=== PATIENT | female | born 1960 | race Caucasian/White ===

== ENCOUNTER 2024-03-05 17:03 | Inpatient (IN) | payer OTHER ==
[2024-03-05 17:10] VITALS: BMI 18.8
[2024-03-05] MEDS ORDERED: ACETAMINOPHEN INJECTION 100 ML ONE ×2 (18:01→23:38)
[2024-03-05] MEDS ORDERED: FAMOTIDINE 10 MG/ML VIAL IVPB ONE (18:02)
[2024-03-05] MEDS ORDERED: ONDANSETRON 4 MG/2 ML VIAL ONE (18:02)
[2024-03-05] MEDS: ACETAMINOPHEN 1000 MG/100 ML BAG IVPB ONE (18:19)
[2024-03-05] MEDS: SODIUM CHLORIDE 1,000 ML IV STA ×2 (18:19→22:06)
[2024-03-05] MEDS: ONDANSETRON 4 MG/2 ML VIAL IVPUSH ONE (18:20)
[2024-03-05] MEDS: FAMOTIDINE 20 MG/50 ML IVPB 20 MG/50 ML MG IVPB ONE (18:20)
[2024-03-05] MEDS ORDERED: HYDROmorphone HCl 2 MG/ML VIAL ONE ×2 (18:21→20:53)
[2024-03-05] MEDS: HYDROmorphone HCl 2 MG/ML VIAL IVPUSH ONE ×2 (18:28→21:04)
[2024-03-05 18:31] LABS: BASO % 0.5 % (0-2.0); HEMATOCRIT 41.9 % (32.4-45.2); HEMOGLOBIN 13.9 GM/dL (10.7-15.3); LYMPH % 16.7 % (8-40); MCH 29.9 pg (25.7-33.7); MCHC 33.1 g/dl (32.0-36.0); MEAN CELL VOLUME 90.2 fl (80-96); MEAN PLT VOLUME 9.3 fl (7.5-11.1); MONO % 7.6 % (3.8-10.2); NEUT % 71.2 % (42.8-82.8); PLATELET COUNT 286 10^3/uL (134-434); RBC 4.65 M/mm3 (3.60-5.2); RDW 16.1 % (11.6-15.6)
[2024-03-05 18:43] LABS: POTASSIUM 4.7 mmol/L (3.5-5.1)
[2024-03-05 18:46] LABS: ALBUMIN 4.2 g/dl (3.4-5.0)
[2024-03-05 18:48] LABS: CREATININE 0.8 mg/dL (0.55-1.3)
[2024-03-05 18:50] LABS: BILIRUBIN,TOTAL 0.4 mg/dL (0.2-1); TOT PROT 7.5 g/dl (6.4-8.2)
[2024-03-05] MEDS: LACTATED RINGERS SOLUTION 1000 ML INFUS.BAG IV ONE (21:48)
[2024-03-05] MEDS ORDERED: KETOROLAC TROMETHAMINE 15 MG/ML VIAL ONE (22:12)
[2024-03-05] MEDS: KETOROLAC TROMETHAMINE 15 MG/ML VIAL IVPUSH PRN (22:16)
[2024-03-06] MEDS: ACETAMINOPHEN 1000 MG/100 ML BAG IVPB PRN
[2024-03-06] MEDS ORDERED: MORPHINE SULFATE 2 MG/ML SYRINGE ONE (00:35)
[2024-03-06] MEDS: morphine CARPU-JECT 2 MG/1 ML DISP.SYRIN IM ONE (00:42)
[2024-03-06] MEDS: MORPHINE SULFATE 2 MG/ML SYRINGE IVPUSH ONE (00:42)
[2024-03-06] MEDS ORDERED: HYDROmorphone HCl 2 MG/ML VIAL ONE (01:06)
[2024-03-06] MEDS: HYDROmorphone HCl 2 MG/ML VIAL IVPB PRN ×3 (01:14→22:27)
[2024-03-06] MEDS ORDERED: methylPREDNISolone NA SUCC 125 MG/2 ML VIAL IVPUSH ONE (01:44)
[2024-03-06] MEDS: SODIUM CHLORIDE 1,000 ML IV SCH (03:03)
[2024-03-06] MEDS: methylPREDNISolone NA SUCC 125 MG/2 ML VIAL IVPB ONE (03:20)
[2024-03-06] MEDS: GABAPENTIN 300 MG CAPSULE PO SCH (06:12)
[2024-03-06] MEDS: MUPIROCIN CA 2% TOPICAL CREAM 15 GM TUBE TP SCH (07:15)
[2024-03-06 08:56] LABS: POTASSIUM 4.3 mmol/L (3.5-5.1)
[2024-03-06 09:00] LABS: BASO % 0.5 % (0-2.0); EOS % 0.5 % (0-4.5); HEMATOCRIT 39.8 % (32.4-45.2); HEMOGLOBIN 13.2 GM/dL (10.7-15.3); LYMPH % 9.1 % (8-40); MCH 30.2 pg (25.7-33.7); MCHC 33.2 g/dl (32.0-36.0); MEAN PLT VOLUME 9.5 fl (7.5-11.1); MONO % 1.3 % (3.8-10.2); NEUT % 88.6 % (42.8-82.8); PLATELET COUNT 272 10^3/uL (134-434); RBC 4.37 M/mm3 (3.60-5.2); RDW 16.2 % (11.6-15.6); WHITE BLOOD COUNT 9.2 K/mm3 (4.0-10.0)
[2024-03-06] MEDS: ENOXAPARIN NA (PORCINE) 40 MG/0.4 ML DISP.SYRIN SQ SCH (09:42)
[2024-03-06] MEDS ORDERED: methylPREDNISolone NA SUCC 125 MG/2 ML VIAL IVPB ONE (10:00)
[2024-03-06] MEDS ORDERED: EMOLLIENT BASE TP SCH (10:00)
[2024-03-06] MEDS ORDERED: [UNRECOGNIZED DRUG - OTHER] TP SCH (10:00)
[2024-03-06] MEDS ORDERED: TRETINOIN TP SCH (10:00)
[2024-03-06 10:05] LABS: CALCIUM 9.4 mg/dL (8.5-10.1)
[2024-03-06 10:06] LABS: ALBUMIN 4.1 g/dl (3.4-5.0); BLOOD UREA NITROGEN 13.4 mg/dL (7-18); MAGNESIUM 2.4 mg/dL (1.8-2.4)
[2024-03-06 10:09] LABS: CREATININE 0.7 mg/dL (0.55-1.3); PHOSPHOROUS 3.3 mg/dL (2.5-4.9)
[2024-03-06 10:10] LABS: TOT PROT 7.1 g/dl (6.4-8.2)
[2024-03-06 10:21] LABS: BILIRUBIN,TOTAL 0.5 mg/dL (0.2-1)
[2024-03-06] MEDS: HYDROmorphone HCl 2 MG/ML VIAL IVPB ONE (17:54)
[2024-03-06] MEDS: KETOROLAC TROMETHAMINE 15 MG/ML VIAL IVPUSH ONE (17:55)
[2024-03-06] MEDS: oxyCODONE HCL 5 MG TABLET PO PRN (20:28)
[2024-03-06] MEDS: PATIENT'S OWN MEDICATION (NON-FORMULARY) (Tizanidine Hcl [Tizanidine Hcl] 4 MG Tablet) PO SCH (21:10)
[2024-03-06] MEDS: PANTOPRAZOLE SODIUM 40 MG VIAL IVPUSH SCH (21:10)
[2024-03-06] MEDS: MONTELUKAST NA 10 MG TABLET PO SCH (21:10)
[2024-03-06] MEDS ORDERED: VENLAFAXINE HCL 150 MG E.R. CAPSULE PO SCH (22:41)
[2024-03-07 09:17] LABS: HEMATOCRIT 37.1 % (32.4-45.2); MCH 29.6 pg (25.7-33.7); MCHC 32.4 g/dl (32.0-36.0); MEAN CELL VOLUME 91.3 fl (80-96); MEAN PLT VOLUME 9.5 fl (7.5-11.1); PLATELET COUNT 259 10^3/uL (134-434); RBC 4.06 M/mm3 (3.60-5.2); RDW 15.8 % (11.6-15.6); WHITE BLOOD COUNT 11.6 K/mm3 (4.0-10.0)
[2024-03-07 09:24] LABS: POTASSIUM 3.6 mmol/L (3.5-5.1)
[2024-03-07] MEDS: VENLAFAXINE HCL 75 MG E.R. CAPSULES PO SCH (09:30)
[2024-03-07 09:32] LABS: BLOOD UREA NITROGEN 12.1 mg/dL (7-18); CALCIUM 9.4 mg/dL (8.5-10.1)
[2024-03-07 09:33] LABS: ALBUMIN 4.1 g/dl (3.4-5.0)
[2024-03-07 09:35] LABS: CREATININE 0.8 mg/dL (0.55-1.3)
[2024-03-07 09:37] LABS: BILIRUBIN,TOTAL 0.6 mg/dL (0.2-1); TOT PROT 6.7 g/dl (6.4-8.2)
[2024-03-07] MEDS ORDERED: VENLAFAXINE HCL 150 MG E.R. CAPSULE PO SCH (10:00)
[2024-03-07] MEDS: RIFAXIMIN 550 MG TABLET PO SCH (14:21)
[2024-03-07] MEDS: HYDROmorphone HCl 2 MG/ML VIAL IVPUSH PRN (16:23)
[2024-03-07] MEDS: HYDROmorphone HCL CARPU-JECT 2 MG/1 ML DISP.SYRIN IVPUSH PRN (21:22)
[2024-03-08 09:26] LABS: HEMOGLOBIN 13.5 GM/dL (10.7-15.3); MCH 29.7 pg (25.7-33.7); MCHC 32.2 g/dl (32.0-36.0); MEAN CELL VOLUME 92.4 fl (80-96); MEAN PLT VOLUME 9.6 fl (7.5-11.1); PLATELET COUNT 298 10^3/uL (134-434); RBC 4.55 M/mm3 (3.60-5.2); WHITE BLOOD COUNT 11.3 K/mm3 (4.0-10.0)
[2024-03-08 09:44] LABS: ALBUMIN 4.4 g/dl (3.4-5.0); BLOOD UREA NITROGEN 11.2 mg/dL (7-18); MAGNESIUM 2.3 mg/dL (1.8-2.4)
[2024-03-08 09:46] LABS: CREATININE 0.9 mg/dL (0.55-1.3)
[2024-03-08 09:47] LABS: PHOSPHOROUS 4.2 mg/dL (2.5-4.9)
[2024-03-08 09:49] LABS: BILIRUBIN,TOTAL 0.6 mg/dL (0.2-1); TOT PROT 7.6 g/dl (6.4-8.2)
[2024-03-08] MEDS: LIPASE/PROTEASE/AMYLASE 36,000 UNIT CAPSULE PO SCH (13:16)
[2024-03-08] MEDS: POLYETHYLENE GLYCOL (HEALTHYLAX) 3350 17 GM PACKET PO ONE (15:23)
[2024-03-08] MEDS: HYDROmorphone HCL CARPU-JECT 2 MG/1 ML DISP.SYRIN IVPUSH PRN (16:45)
[2024-03-09 08:31] LABS: HEMATOCRIT 41.9 % (32.4-45.2); HEMOGLOBIN 13.9 GM/dL (10.7-15.3); MCH 30.1 pg (25.7-33.7); MCHC 33.2 g/dl (32.0-36.0); MEAN CELL VOLUME 90.6 fl (80-96); MEAN PLT VOLUME 9.4 fl (7.5-11.1); PLATELET COUNT 282 10^3/uL (134-434); RBC 4.63 M/mm3 (3.60-5.2); RDW 16.2 % (11.6-15.6); WHITE BLOOD COUNT 7.4 K/mm3 (4.0-10.0)
[2024-03-09 08:41] LABS: POTASSIUM 3.9 mmol/L (3.5-5.1)
[2024-03-09 08:44] LABS: ALBUMIN 4.4 g/dl (3.4-5.0); BLOOD UREA NITROGEN 10.1 mg/dL (7-18); MAGNESIUM 2.5 mg/dL (1.8-2.4)
[2024-03-09 08:47] LABS: CREATININE 0.9 mg/dL (0.55-1.3); PHOSPHOROUS 5.5 mg/dL (2.5-4.9)
[2024-03-09 08:49] LABS: BILIRUBIN,TOTAL 0.8 mg/dL (0.2-1); TOT PROT 7.3 g/dl (6.4-8.2)
[2024-03-09] MEDS: MAGNESIUM CITRATE 300 ML BOTTLE PO ONE ×2 (12:40→21:09)
[2024-03-09] MEDS ORDERED: oxyCODONE HCL 5 MG TABLET PO PRN (19:00)
[2024-03-09] MEDS ORDERED: ASPIRIN 81 MG CHEWABLE TABLETS PO PRN (19:07)
[2024-03-10 07:32] LABS: HEMATOCRIT 46.3 % (32.4-45.2); MCH 29.6 pg (25.7-33.7); MCHC 32.4 g/dl (32.0-36.0); MEAN CELL VOLUME 91.2 fl (80-96); MEAN PLT VOLUME 9.3 fl (7.5-11.1); PLATELET COUNT 310 10^3/uL (134-434); RBC 5.08 M/mm3 (3.60-5.2); RDW 15.6 % (11.6-15.6); WHITE BLOOD COUNT 9.2 K/mm3 (4.0-10.0)
[2024-03-10 07:55] LABS: ALBUMIN 4.4 g/dl (3.4-5.0); BLOOD UREA NITROGEN 10.8 mg/dL (7-18); CALCIUM 9.9 mg/dL (8.5-10.1)
[2024-03-10 07:58] LABS: CREATININE 0.7 mg/dL (0.55-1.3)
[2024-03-10 07:59] LABS: BILIRUBIN,TOTAL 0.6 mg/dL (0.2-1)
[2024-03-10 08:00] LABS: TOT PROT 7.5 g/dl (6.4-8.2)
[2024-03-10] MEDS: POLYETHYLENE GLYCOL (HEALTHYLAX) 3350 17 GM PACKET PO SCH (10:38)
[2024-03-10] MEDS ORDERED: ACETAMINOPHEN/CAFFEINE/BUTALBITAL 1 TAB PO PRN (11:12)
[2024-03-10] MEDS ORDERED: ACETAMINOPHEN 1000 MG/100 ML BAG IVPB PRN (11:35)
[2024-03-10 17:28] VITALS: BP 130/71; PULSE 72; RESP 16; TEMP 98.1
[2024-03-11] MEDS ORDERED: POLYETHYLENE GLYCOL (HEALTHYLAX) 3350 17 GM PACKET PO SCH (10:00)
== END 2024-03-10 16:25 | disposition home or self-care (01) | DRG 440 ==
LOC: JER 17:03 → JERBED 23:22 → INTOOBSV 23:22 → J6S 03-06 02:04 → OBSVTOIN 03-06 13:47
PROVIDERS: ADMIT Student in an Organized Health Care Education/Training Program; ATTEND Internal Medicine
DX: K85.90 Acute pancreatitis without necrosis or infection, unspecified (principal); G35 Multiple sclerosis; R51.9 Headache, unspecified; E03.9 Hypothyroidism, unspecified; G62.9 Polyneuropathy, unspecified; K83.8 Other specified diseases of biliary tract; K59.00 Constipation, unspecified
CPT/HCPCS: 0241U-QW; 36415; 70450-TC; 70553-TC; 74177-TC; 74181-TC; 80053; 80061; 83690; 83735; 84100; 84484; 85025; 85027; 85651; 93005; 93010; 97116-GP; 97161-GP; 99285-25; G0378; J0131; Q9967